=== PATIENT | male | born 1985 | race Hispanic/Latino ===

== ENCOUNTER → 2020-09-04 | Outpatient (CLI) | payer OTHER ==
[~2020-09-04] MED LIST: COVID-19 VACC, MRNA(MODERNA)/PF 100 MCG/0.5 ML VIAL IM ONE
== END | disposition home or self-care (01) ==
LOC: VACCPMC 16:30
DX: Z23 Encounter for immunization (principal); Z20.822 Contact with and (suspected) exposure to COVID-19

== ENCOUNTER → 2020-10-04 | Outpatient (CLI) | payer OTHER | END | DRG 951 | LOC: VACCPMC 10:43 | DX: Z23 Encounter for immunization (principal); Z20.822 Contact with and (suspected) exposure to COVID-19 | CPT/HCPCS: 0012A; 91301 ==

== ENCOUNTER 2023-06-22 14:54 | Outpatient (RCR) | payer BC | END 2023-06-30 | LOC: PT 14:54 | PROVIDERS: ATTEND Specialist | DX: S80.02XA Contusion of left knee, initial encounter (principal); G57.22 Lesion of femoral nerve, left lower limb ==

== ENCOUNTER 2023-07-15 10:00 | Outpatient (RCR) | payer BC | END 2023-07-30 | LOC: PT 10:00 | PROVIDERS: ATTEND Specialist | DX: S80.02XA Contusion of left knee, initial encounter (principal); G57.22 Lesion of femoral nerve, left lower limb ==